=== PATIENT | female | born 1985 | race Caucasian/White ===

== ENCOUNTER 2018-01-24 11:08 | Emergency (ER) | payer MEDICAID, OTHER ==
[2018-01-24] MEDS ORDERED: Sodium Chloride 0.9% 1,000 ML IV ONE (11:12)
--- NOTE | 2018-01-24 11:15 | EDM.PDOC ---
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 Her boyfriend presents to emergency room shortly thereafter, l he states that she has history of anxiety and the syncopal episodes that are associated with usually stress reaction .she is going through a divorce. On arrival she was not talkative, she did complain of some chest pain or epigastric pain. 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 Otherwise , she is doing well and did provide some Ativan and proton X. she is asymptomatic, much improved entire workup is normal, she did not provide a urine sample. it seems that she deliberately did not urinate in the collection cup Provided , however she did urinate. no fever nausea vomiting chills sweats no chest pain shortness breath headache dizziness palpitation no bowel or urine symptoms ] Review of systems: As per history of present illness and below otherwise all systems reviewed and negative. Past medical history: As per history of present illness and as reviewed below otherwise noncontributory. Surgical history: As per history of present illness and as reviewed below otherwise noncontributory. Social history: No reported history of drug or alcohol abuse. Family history: As per history of present illness and as reviewed below otherwise noncontributory. Physical exam: HEENT: Atraumatic, normocephalic, pupils reactive, negative for conjunctival pallor or scleral icterus, mucous membranes moist, throat clear, neck supple, nontender, trachea midline. Lungs: Clear to auscultation, breath sounds equal bilaterally, chest nontender. Heart: S1S2, regular, negative for clicks, rubs, or JVD. Abdomen: Soft, nondistended, nontender. Negative for masses or hepatosplenomegaly. Negative for costovertebral tenderness. Pelvis: Stable nontender. Genitourinary: Deferred. Rectal: Deferred. Extremities: Atraumatic, negative for cords or calf pain. Neurovascular unremarkable. Neuro: Awake, alert, oriented. Cranial nerves II through XII unremarkable. Cerebellum unremarkable. Motor and sensory unremarkable throughout. Exam nonfocal. Diagnostics: [Accu-Chek glucose 88 CBC CMP UA troponin lipase hCG serum Chest [address] no contrast cervical spine no contrast Therapeutics: [1 L normal saline bolus ]Ativan 1 mg IV Proton X 80 mg IV 24 hours off work Ativan 0.5 mg by mouth twice a day #10 no refill Follow-up withPrimary care Impression: Anxiety /stress reaction Definitive disposition and diagnosis as appropriate pending reevaluation and review of above. - Related Data Allergies Allergy/AdvReac Type Severity Reaction Status Date / Time No Known Allergies Allergy Verified 01/24/18 13:01 Home Meds: Home Meds . [No Known Home Meds] 09/28/16 [History] Social & Family History - Family History Family Medical History: Noncontributory ED ROS GENERAL - Review of Systems Review Of Systems: See Below ED EXAM, GENERAL - Physical Exam Exam: See Below Course - Vital Signs Last Recorded V/S: Last Vital Signs Temp 97.6 F 01/24/18 11:10 Pulse 84 01/24/18 14:20 Resp 20 01/24/18 14:20 BP 98/62 01/24/18 14:20 Pulse Ox 99 01/24/18 14:20 Orthostatic Blood Pressure [ 133/91 Standing] Orthostatic Blood Pressure [ 133/87 Sitting] Orthostatic Blood Pressure [ 129/76 Supine] - Orders/Labs/Meds Labs: Laboratory Tests 01/24/18 01/24/18 01/24/18 Range/Units 11:34 11:34 11:34 WBC 6.13 (4.0-11.0) K/uL RBC 4.73 (4.30-5.90) M/uL Hgb 14.5 (12.0-16.0) g/dL Hct 43.7 (36.0-46.0) % MCV 92.4 (80.0-98.0) fL MCH 30.7 (27.0-32.0) pg MCHC 33.2 (31.0-37.0) g/dL RDW Std Deviation 45.2 (28.0-62.0) fl RDW Coeff of Ruth 13 (11.0-15.0) % Plt Count 163 (150-400) K/uL MPV 11.80 (7.40-12.00) fL Neut % (Auto) 64.0 (48.0-80.0) % Lymph % (Auto) 24.6 (16.0-40.0) % [place] % (Auto) 9.3 (0.0-15.0) % Eos % (Auto) 1.6 (0.0-7.0) % Baso % (Auto) 0.5 (0.0-1.5) % Neut # (Auto) 3.9 (1.4-5.7) K/uL Lymph # (Auto) 1.5 (0.6-2.4) K/uL [place] # (Auto) 0.6 (0.0-0.8) K/uL Eos # (Auto) 0.1 (0.0-0.7) K/uL Baso # (Auto) 0.0 (0.0-0.1) K/uL Nucleated RBC % 0.0 /100WBC Nucleated RBCs # 0 K/uL Sodium 140 (136-145) mmol/L Potassium 4.0 (3.5-5.1) mmol/L Chloride 105 (98-107) mmol/L Carbon Dioxide 25.6 (21.0-32.0) mmol/L BUN 18 (7.0-18.0) mg/dL Creatinine 0.8 (0.6-1.0) mg/dL Est Cr Clr Drug Dosing 87.55 mL/min Estimated GFR (MDRD) > 60.0 ml/min Glucose 103 (74-106) mg/dL Calcium 9.4 (8.5-10.1) mg/dL Total Bilirubin 0.4 (0.2-1.0) mg/dL AST 16 (15-37) IU/L ALT 31 (14-63) IU/L Alkaline Phosphatase 62 (46-116) U/L Troponin I < 0.050 (0.000-0.056) ng/mL Total Protein 7.4 (6.4-8.2) g/dL Albumin 4.2 (3.4-5.0) g/dL Globulin 3.2 (2.0-3.5) g/dL Albumin/Globulin Ratio 1.3 (1.3-2.8) Lipase 239 (73-393) U/L HCG, Qual NEGATIVE (NEG) Urine Color Urine Appearance Urine pH (5.0-8.0) Ur Specific [place] (1.001-1.035) Urine Protein (NEGATIVE) mg/dL Urine Glucose (UA) (NEGATIVE) mg/dL Urine Ketones (NEGATIVE) mg/dL Urine Occult Blood (NEGATIVE) Urine Nitrite (NEGATIVE) Urine Bilirubin (NEGATIVE) Urine Urobilinogen (<2.0) EU/dL Ur Leukocyte Esterase (NEGATIVE) Urine RBC (0-2/HPF) Urine WBC (0-5/HPF) Ur Epithelial Cells (NONE-FEW) Urine Bacteria (NEGATIVE) Urine HCG, Qual (NEGATIVE) 01/24/18 01/24/18 Range/Units 13:48 13:48 WBC (4.0-11.0) K/uL RBC (4.30-5.90) M/uL Hgb (12.0-16.0) g/dL Hct (36.0-46.0) % MCV (80.0-98.0) fL MCH (27.0-32.0) pg MCHC (31.0-37.0) g/dL RDW Std Deviation (28.0-62.0) fl RDW Coeff of Ruth (11.0-15.0) % Plt Count (150-400) K/uL MPV (7.40-12.00) fL Neut % (Auto) (48.0-80.0) % Lymph % (Auto) (16.0-40.0) % [place] % (Auto) (0.0-15.0) % Eos % (Auto) (0.0-7.0) % Baso % (Auto) (0.0-1.5) % Neut # (Auto) (1.4-5.7) K/uL Lymph # (Auto) (0.6-2.4) K/uL [place] # (Auto) (0.0-0.8) K/uL Eos # (Auto) (0.0-0.7) K/uL Baso # (Auto) (0.0-0.1) K/uL Nucleated RBC % /100WBC Nucleated RBCs # K/uL Sodium (136-145) mmol/L Potassium (3.5-5.1) mmol/L Chloride (98-107) mmol/L Carbon Dioxide (21.0-32.0) mmol/L BUN (7.0-18.0) mg/dL Creatinine (0.6-1.0) mg/dL Est Cr Clr Drug Dosing mL/min Estimated GFR (MDRD) ml/min Glucose (74-106) mg/dL Calcium (8.5-10.1) mg/dL Total Bilirubin (0.2-1.0) mg/dL AST (15-37) IU/L ALT (14-63) IU/L Alkaline Phosphatase (46-116) U/L Troponin I (0.000-0.056) ng/mL Total Protein (6.4-8.2) g/dL Albumin (3.4-5.0) g/dL Globulin (2.0-3.5) g/dL Albumin/Globulin Ratio (1.3-2.8) Lipase (73-393) U/L HCG, Qual (NEG) Urine Color YELLOW Urine Appearance CLEAR Urine pH 6.0 (5.0-8.0) Ur Specific [place] <= 1.005 (1.001-1.035) Urine Protein NEGATIVE (NEGATIVE) mg/dL Urine Glucose (UA) NEGATIVE (NEGATIVE) mg/dL Urine Ketones NEGATIVE (NEGATIVE) mg/dL Urine Occult Blood NEGATIVE (NEGATIVE) Urine Nitrite NEGATIVE (NEGATIVE) Urine Bilirubin NEGATIVE (NEGATIVE) Urine Urobilinogen 0.2 (<2.0) EU/dL Ur Leukocyte Esterase NEGATIVE (NEGATIVE) Urine RBC 0-1 (0-2/HPF) Urine WBC 0-1 (0-5/HPF) Ur Epithelial Cells RARE (NONE-FEW) Urine Bacteria RARE (NEGATIVE) Urine HCG, Qual NEGATIVE (NEGATIVE) Meds: Medications Discontinued Medications Generic Name Dose Route Start Last Admin Trade Name Freq PRN Reason Stop Dose Admin Sodium Chloride 1,000 mls @ 999 mls/hr 01/24/18 11:12 01/24/18 12:26 Normal Saline IV 01/24/18 12:12 999 mls/hr STAT ONE Administration Lorazepam 1 mg 01/24/18 11:35 01/24/18 12:26 Ativan IVPUSH 01/24/18 11:36 1 mg ONETIME ONE Administration Pantoprazole Sodium 80 mg 01/24/18 11:35 01/24/18 12:26 Protonix Iv IVPUSH 01/24/18 11:36 80 mg .BOLUS ONE Administration Departure - Departure Time of Disposition: 13:15 Disposition: Home, Self-Care 01 Condition: Good Clinical Impression: Stress reaction, Anxiety - Discharge Information Instructions: Generalized Anxiety Disorder, Adult, Stress Forms: ED Department Discharge Additional Instructions: Medication as prescribed Return if symptoms persist or worsen Follow-up with primary care in 2 weeks sooner as needed [facility] - Primary Care [address] [place] [id number] The following information is given to patients seen in the emergency department who are being discharged to home. This information is to outline your options for follow-up care. We provide all patients seen in our emergency department with a follow-up referral. The need for follow-up, as well as the timing and circumstances, are variable depending upon the specifics of your emergency department visit. If you don't have a primary care physician on staff, we will provide you with a referral. We always advise you to contact your personal physician following an emergency department visit to inform them of the circumstance of the visit and for follow-up with them and/or the need for any referrals to a consulting specialist. The emergency department will also refer you to a specialist when appropriate. This referral assures that you have the opportunity for follow-up care with a specialist. All of these measure are taken in an effort to provide you with optimal care, which includes your follow-up. Under all circumstances we always encourage you to contact your private physician who remains a resource for coordinating your care. When calling for follow-up care, please make the office aware that this follow-up is from your recent emergency room visit. If for any reason you are refused follow-up, please contact the [facility] emergency department at and asked to speak to the emergency department charge nurse.
[2018-01-24] MEDS ORDERED: Pantoprazole 40 MG Vial IVPUSH ONE (11:35)
[2018-01-24] MEDS ORDERED: LORazepam 2 MG/ML SDV IVPUSH ONE (11:35)
--- NOTE | 2018-01-24 12:01 | CR ---
EXAMINATION: Portable chest radiograph. HISTORY: Syncope. FINDINGS: The trachea is midline. The cardiomediastinal silhouette is within normal limits. No pulmonary infilt rates, effusions or pneumothorax. Osseous structures appear unremarkable. IMPRESSION: No acute cardiopulmonary process.
--- NOTE | 2018-01-24 12:20 | CT ---
EXAMINATION: CT cervical spine HISTORY: Pain COMPARISON: None TECHNIQUE: Axial CT images obtained through the cervical spine without contrast. Coronal and sagittal reconstructions obtained. FINDINGS: The cervical spinal alignment is normal. The vertebral body heights and disc spaces appear well-maintained. There is no fracture or acute osseous abnormality. Bone mineralization is normal. Ea rly degenerative changes within the left temporomandibular joint. Lung apices are clear. Paravertebra l soft tissues appear normal. IMPRESSION: No acute findings noted within the cervical spine.
[2018-01-24 12:26] LABS: CHLORIDE,CL 105 mmol/L (98-107); SODIUM,NA 140 mmol/L (136-145)
--- NOTE | 2018-01-24 12:48 | CT ---
EXAMINATION: Non contrast CT head. Coronal and sagittal reformats. HISTORY: Pain FINDINGS: No evidence of intra or extra axial hemorrhage, mass, midline shift, hydrocephalus or edema. No hypoattenuation changes in the major vascular territories to suggest acute infarct. No abnormal intracranial calcifications are detected. No evidence of substantial vascular calcificat ions. Small mucous retention cysts noted within the paranasal sinuses. Mastoid air cells and middle ears ar e clear. Orbits and globes are symmetric. Pituitary fossa appears unremarkable. Calvarium is intact. No evidence of skull fracture. IMPRESSION: No acute intracranial findings.
[2018-01-24 14:28] VITALS: BP 98/62
== END 2018-01-24 14:26 | disposition home or self-care (01) ==
LOC: MW.ED 11:08
DX: F43.9 Reaction to severe stress, unspecified (principal); F41.9 Anxiety disorder, unspecified
CPT/HCPCS: 36415; 70450; 71045; 72125; 80053; 81001; 81025; 83690; 84484; 84703; 85025; 93005; 96361; 96374; 96375; 99285; C9113; J2060; J7040

== ENCOUNTER 2019-03-02 16:38 | Emergency (ER) | payer MEDICAID ==
[2019-03-02] MEDS ORDERED: LORazepam 2 MG/ML SDV IVPUSH ONE (16:51)
--- NOTE | 2019-03-02 16:51 | EDM.PDOC ---
ED HPI GENERAL MEDICAL PROBLEM - General Chief Complaint: Chest Pain Stated Complaint: PANIC ATTACK Time Seen by Provider: 03/02/19 16:51 Source of Information: Reports: Patient - History of Present Illness INITIAL COMMENTS - FREE TEXT/NARRATIVE: HISTORY AND PHYSICAL: History of present illness: [Patient presents via EMS with complaint of chest pain post panic attack She has 4 out of 10 right-sided chest pain that is reproducible along right sternal border with palpation no fever nausea vomiting chills sweats no shortness of breath or diaphoresis no radiation arm neck or jaw ] Review of systems: As per history of present illness and below otherwise all systems reviewed and negative. Past medical history: As per history of present illness and as reviewed below otherwise noncontributory. Surgical history: As per history of present illness and as reviewed below otherwise noncontributory. Social history: No reported history of drug or alcohol abuse. Family history: As per history of present illness and as reviewed below otherwise noncontributory. Physical exam: HEENT: Atraumatic, normocephalic, pupils reactive, negative for conjunctival pallor or scleral icterus, mucous membranes moist, throat clear, neck supple, nontender, trachea midline. Lungs: Clear to auscultation, breath sounds equal bilaterally, chest nontender. Heart: S1S2, regular, negative for clicks, rubs, or JVD. Abdomen: Soft, nondistended, nontender. Negative for masses or hepatosplenomegaly. Negative for costovertebral tenderness. Pelvis: Stable nontender. Genitourinary: Deferred. Rectal: Deferred. Extremities: Atraumatic, negative for cords or calf pain. Neurovascular unremarkable. Neuro: Awake, alert, oriented. Cranial nerves II through XII unremarkable. Cerebellum unremarkable. Motor and sensory unremarkable throughout. Exam nonfocal. Diagnostics: [CBC CMP troponin lipase UA hCG EKG Chest 1 view] Therapeutics: [She received aspirin with EMS Ativan 1 mg IV Proton X ] Impression: [ anxiety about health Reproducible chest wall pain Panic disorder ] Definitive disposition and diagnosis as appropriate pending reevaluation and review of above. Chest Pain Score (Numeric/FACES): 4 - Related Data Allergies Allergy/AdvReac Type Severity Reaction Status Date / Time No Known Allergies Allergy Verified 03/02/19 16:41 Home Meds: Home Meds Sertraline [Zoloft] 100 mg PO DAILY 03/02/19 [History] Past Medical History Cardiovascular History: Reports: Other (See Below) Other Cardiovascular History: cardiac hx unknown Psychiatric History: Reports: Anxiety - Infectious Disease History Infectious Disease History: Reports: None Social & Family History - Family History Family Medical History: Noncontributory - Tobacco Use Smoking Status *Q: Never Smoker Second Hand Smoke Exposure: No - Caffeine Use Caffeine Use: Reports: Coffee - Recreational Drug Use Recreational Drug Use: No ED ROS GENERAL - Review of Systems Review Of Systems: See Below ED EXAM, GENERAL - Physical Exam Exam: See Below Course - Vital Signs Last Recorded V/S: Last Vital Signs Temp 98.5 F 03/02/19 16:41 Pulse 93 03/02/19 16:41 Resp 16 03/02/19 16:41 BP 109/71 03/02/19 16:41 Pulse Ox 97 03/02/19 16:41 - Orders/Labs/Meds Orders: Active Orders 24 hr Category Date Time Status EKG Documentation Completion [RC] STAT Care 03/02/19 16:52 Active Chest 1V Frontal [CR] Stat Exams 03/02/19 16:52 Ordered Ondansetron [Zofran ODT] Med 03/02/19 17:30 Active 8 mg PO ONETIME PRN Medication Orders Ondansetron HCl (Zofran Odt) 8 mg PO ONETIME PRN PRN Reason: Nausea/Vomiting Last Admin: 03/02/19 17:38 Dose: 8 mg Labs: Laboratory Tests 03/02/19 03/02/19 03/02/19 Range/Units 17:16 17:16 17:55 WBC 6.99 (4.0-11.0) K/uL RBC 4.56 (4.30-5.90) M/uL Hgb 13.7 (12.0-16.0) g/dL Hct 41.7 (36.0-46.0) % MCV 91.4 (80.0-98.0) fL MCH 30.0 (27.0-32.0) pg MCHC 32.9 (31.0-37.0) g/dL RDW Std Deviation 42.7 (28.0-62.0) fl RDW Coeff of Ruth 13 (11.0-15.0) % Plt Count 140 L (150-400) K/uL MPV 11.40 (7.40-12.00) fL Neut % (Auto) 79.4 (48.0-80.0) % Lymph % (Auto) 12.3 L (16.0-40.0) % [place] % (Auto) 7.4 (0.0-15.0) % Eos % (Auto) 0.6 (0.0-7.0) % Baso % (Auto) 0.3 (0.0-1.5) % Neut # (Auto) 5.6 (1.4-5.7) K/uL Lymph # (Auto) 0.9 (0.6-2.4) K/uL [place] # (Auto) 0.5 (0.0-0.8) K/uL Eos # (Auto) 0.0 (0.0-0.7) K/uL Baso # (Auto) 0.0 (0.0-0.1) K/uL Nucleated RBC % 0.0 /100WBC Nucleated RBCs # 0 K/uL Sodium 140 (136-145) mmol/L Potassium 3.4 L (3.5-5.1) mmol/L Chloride 107 (98-107) mmol/L Carbon Dioxide 24.5 (21.0-32.0) mmol/L BUN 16 (7.0-18.0) mg/dL Creatinine 0.8 (0.6-1.0) mg/dL Est Cr Clr Drug Dosing 86.37 mL/min Estimated GFR (MDRD) > 60.0 ml/min Glucose 124 H (74-106) mg/dL Calcium 8.8 (8.5-10.1) mg/dL Total Bilirubin 0.4 (0.2-1.0) mg/dL AST 11 L (15-37) IU/L ALT 16 (14-63) IU/L Alkaline Phosphatase 50 (46-116) U/L Troponin I < 0.050 (0.000-0.056) ng/mL Total Protein 7.0 (6.4-8.2) g/dL Albumin 4.0 (3.4-5.0) g/dL Globulin 3.0 (2.6-4.0) g/dL Albumin/Globulin Ratio 1.3 (0.9-1.6) Lipase 207 (73-393) U/L Urine Color YELLOW Urine Appearance SLT CLOUDY Urine pH 6.5 (5.0-8.0) Ur Specific [place] 1.020 (1.001-1.035) Urine Protein NEGATIVE (NEGATIVE) mg/dL Urine Glucose (UA) NEGATIVE (NEGATIVE) mg/dL Urine Ketones TRACE H (NEGATIVE) mg/dL Urine Occult Blood NEGATIVE (NEGATIVE) Urine Nitrite NEGATIVE (NEGATIVE) Urine Bilirubin SMALL H (NEGATIVE) Urine Ictotest NEGATIVE Urine Urobilinogen 1.0 (<2.0) EU/dL Ur Leukocyte Esterase NEGATIVE (NEGATIVE) Urine HCG, Qual (NEGATIVE) 03/02/19 Range/Units 17:55 WBC (4.0-11.0) K/uL RBC (4.30-5.90) M/uL Hgb (12.0-16.0) g/dL Hct (36.0-46.0) % MCV (80.0-98.0) fL MCH (27.0-32.0) pg MCHC (31.0-37.0) g/dL RDW Std Deviation (28.0-62.0) fl RDW Coeff of Ruth (11.0-15.0) % Plt Count (150-400) K/uL MPV (7.40-12.00) fL Neut % (Auto) (48.0-80.0) % Lymph % (Auto) (16.0-40.0) % [place] % (Auto) (0.0-15.0) % Eos % (Auto) (0.0-7.0) % Baso % (Auto) (0.0-1.5) % Neut # (Auto) (1.4-5.7) K/uL Lymph # (Auto) (0.6-2.4) K/uL [place] # (Auto) (0.0-0.8) K/uL Eos # (Auto) (0.0-0.7) K/uL Baso # (Auto) (0.0-0.1) K/uL Nucleated RBC % /100WBC Nucleated RBCs # K/uL Sodium (136-145) mmol/L Potassium (3.5-5.1) mmol/L Chloride (98-107) mmol/L Carbon Dioxide (21.0-32.0) mmol/L BUN (7.0-18.0) mg/dL Creatinine (0.6-1.0) mg/dL Est Cr Clr Drug Dosing mL/min Estimated GFR (MDRD) ml/min Glucose (74-106) mg/dL Calcium (8.5-10.1) mg/dL Total Bilirubin (0.2-1.0) mg/dL AST (15-37) IU/L ALT (14-63) IU/L Alkaline Phosphatase (46-116) U/L Troponin I (0.000-0.056) ng/mL Total Protein (6.4-8.2) g/dL Albumin (3.4-5.0) g/dL Globulin (2.6-4.0) g/dL Albumin/Globulin Ratio (0.9-1.6) Lipase (73-393) U/L Urine Color Urine Appearance Urine pH (5.0-8.0) Ur Specific [place] (1.001-1.035) Urine Protein (NEGATIVE) mg/dL Urine Glucose (UA) (NEGATIVE) mg/dL Urine Ketones (NEGATIVE) mg/dL Urine Occult Blood (NEGATIVE) Urine Nitrite (NEGATIVE) Urine Bilirubin (NEGATIVE) Urine Ictotest Urine Urobilinogen (<2.0) EU/dL Ur Leukocyte Esterase (NEGATIVE) Urine HCG, Qual NEGATIVE (NEGATIVE) Meds: Medications Generic Name Dose Route Start Last Admin Trade Name Freq PRN Reason Stop Dose Admin Ondansetron HCl 8 mg 03/02/19 17:30 03/02/19 17:38 Zofran Odt PO 8 mg ONETIME PRN Administration Nausea/Vomiting Discontinued Medications Generic Name Dose Route Start Last Admin Trade Name Freq PRN Reason Stop Dose Admin Lorazepam 0.5 mg 03/02/19 16:51 03/02/19 17:15 Ativan IVPUSH 03/02/19 16:52 Not Given ONETIME ONE Lorazepam 0.5 mg 03/02/19 17:04 03/02/19 17:15 Ativan PO 03/02/19 17:05 0.5 mg ONETIME ONE Administration Departure - Departure Time of Disposition: 18:35 Disposition: Home, Self-Care 01 Condition: Good Clinical Impression: Panic disorder, Anxiety about health, Chest wall pain - Discharge Information Referrals: PCP,Unknown [Primary Care Provider] - Forms: ED Department Discharge Additional Instructions: Continue current medication as directed Return if symptoms persist or worsen Follow-up with primary care in 2 weeks sooner as needed [facility] - Primary Care [address] [place] [id number] The following information is given to patients seen in the emergency department who are being discharged to home. This information is to outline your options for follow-up care. We provide all patients seen in our emergency department with a follow-up referral. The need for follow-up, as well as the timing and circumstances, are variable depending upon the specifics of your emergency department visit. If you don't have a primary care physician on staff, we will provide you with a referral. We always advise you to contact your personal physician following an emergency department visit to inform them of the circumstance of the visit and for follow-up with them and/or the need for any referrals to a consulting specialist. The emergency department will also refer you to a specialist when appropriate. This referral assures that you have the opportunity for follow-up care with a specialist. All of these measure are taken in an effort to provide you with optimal care, which includes your follow-up. Under all circumstances we always encourage you to contact your private physician who remains a resource for coordinating your care. When calling for follow-up care, please make the office aware that this follow-up is from your recent emergency room visit. If for any reason you are refused follow-up, please contact the [facility] emergency department at and asked to speak to the emergency department charge nurse. - My Orders Last 24 Hours: My Active Orders 03/02/19 16:52 EKG Documentation Completion [RC] STAT Chest 1V Frontal [CR] Stat 03/02/19 17:30 Ondansetron [Zofran ODT] 8 mg PO ONETIME PRN - Assessment/Plan Last 24 Hours: My Active Orders 03/02/19 16:52 EKG Documentation Completion [RC] STAT Chest 1V Frontal [CR] Stat 03/02/19 17:30 Ondansetron [Zofran ODT] 8 mg PO ONETIME PRN
[2019-03-02 16:55] VITALS: BP 109/71
[2019-03-02] MEDS ORDERED: LORazepam 0.5 MG Tab PO ONE (17:04)
[2019-03-02] MEDS ORDERED: Ondansetron 4 MG Tab.DIS PO PRN (17:30)
[2019-03-02 17:49] LABS: CHLORIDE,CL 107 mmol/L (98-107); SODIUM,NA 140 mmol/L (136-145)
--- NOTE | 2019-03-02 18:58 | CR ---
INDICATION: Chest pain. COMPARISON: 01/24/2018. FINDINGS: A PA view of the chest was obtained. The cardiac silhouette and pulmonary vasculature are within normal limits. The lungs are clear bilaterally. IMPRESSION: No evidence of acute pulmonary disease. Dictated by Familia Mackey MD @ 03/02/2019 6:57:57 PM Dictated by: Familia Mackey MD @ 03/02/2019 18:58:05 (Electronically Signed)
== END 2019-03-02 19:12 | disposition home or self-care (01) ==
LOC: MW.ED 16:38
DX: R07.89 Other chest pain (principal); F41.0 Panic disorder [episodic paroxysmal anxiety]; Z79.899 Other long term (current) drug therapy
CPT/HCPCS: 36415; 71045; 80053; 81003; 81025; 83690; 84484; 85025; 93005; 99285; A9270

== ENCOUNTER 2019-04-13 21:21 | Emergency (ER) | payer MEDICAID ==
[2019-04-13] MEDS ORDERED: LORazepam 2 MG/ML SDV IVPUSH ONE (21:27)
--- NOTE | 2019-04-13 22:03 | EDM.PDOC ---
<Carter Aly - Last Filed: 04/13/19 23:41> ED HPI GENERAL MEDICAL PROBLEM - General Chief Complaint: General Stated Complaint: ANXIETY Time Seen by Provider: 04/13/19 21:31 - History of Present Illness INITIAL COMMENTS - FREE TEXT/NARRATIVE: HISTORY AND PHYSICAL: History of present illness: Sherrell is a 34 year old female with a history previous anxiety attacks presents to the emergency department accompanied by her boyfriend for the evaluation of right chest pain. The patient expressed she developed symptoms of chest tightness and shortness of breath approximately two hours ago. She informed me she has experienced similar symptoms for as long as she can remember. The patient reports her chest pain is originates at her right chest and extends distally to her ribs. In the past, when she would experience similar symptoms she would take her PRN Ativan which was effective for symptom relief. The patient states she is of Ativan at home and does not have a current prescription. She expressed she does not have an established PCP. She denies any recent episodes of fevers or chills, leg swelling, cough or sputum production. Review of systems: As per history of present illness and below otherwise all systems reviewed and negative. Past medical history: As per history of present illness and as reviewed below otherwise noncontributory. Surgical history: As per history of present illness and as reviewed below otherwise noncontributory. Social history: No reported history of drug or alcohol abuse. Family history: As per history of present illness and as reviewed below otherwise noncontributory. Physical exam: Constitutional: Well developed well nourished, non toxic appearing. HEENT: Atraumatic, normocephalic, pupils reactive, mucous membranes moist, throat clear, neck supple, nontender, trachea midline. Lungs: Clear to auscultation, breath sounds equal bilaterally, chest nontender. Heart: S1S2, regular, tenderness to palpation of the right costochondral joints Abdomen: Soft, nondistended, nontender. Negative for masses or hepatosplenomegaly. Negative for costovertebral tenderness. Pelvis: Stable nontender. Genitourinary: Deferred. Rectal: Deferred. Extremities: Atraumatic, negative for cords or calf pain. Neurovascular unremarkable. Neuro: Awake, alert, oriented. Cranial nerves II through XII unremarkable. Cerebellum unremarkable. Motor and sensory unremarkable throughout. Exam nonfocal. Diagnostics: UCG, UA, Trop, EKG, CMP, CXR Therapeutics: 1 mg Ativan Impression: Panic attack Attack Plan: All diagnostic results negative. Chest pain is resolved and she is resting comfortably. She states the chest wall pain is very similar to when she had previous episodes of panic attacks. She will be released home. She is is to establish care with a PCP. Returned to the ED as needed and as discussed. The patient is in agreement to the treatment plan. Definitive disposition and diagnosis as appropriate pending reevaluation and review of above. Treatments STONE LAYOUT MARKER: Reports: EKG, IV/IO, Oxygen chest Pain Score (Numeric/FACES): 5 - Related Data Allergies Allergy/AdvReac Type Severity Reaction Status Date / Time No Known Allergies Allergy Verified 04/13/19 21:39 Home Meds: Home Meds Sertraline [Zoloft] 0 mg PO DAILY 03/02/19 [History] Past Medical History Cardiovascular History: Reports: Other (See Below) Other Cardiovascular History: cardiac hx unknown Psychiatric History: Reports: Anxiety - Infectious Disease History Infectious Disease History: Reports: None Social & Family History - Family History Family Medical History: Noncontributory - Caffeine Use Caffeine Use: Reports: Coffee Course - Vital Signs Last Recorded V/S: Last Vital Signs Temp 36.4 C 04/13/19 21:21 Pulse 98 04/13/19 21:21 Resp 24 H 04/13/19 21:21 BP 137/88 04/13/19 21:21 Pulse Ox 96 04/13/19 21:21 - Orders/Labs/Meds Orders: Active Orders 24 hr Category Date Time Status EKG Documentation Completion [RC] STAT Care 04/13/19 21:32 Active Labs: Laboratory Tests 04/13/19 04/13/19 04/13/19 Range/Units 21:53 21:53 22:05 WBC 7.26 (4.0-11.0) K/uL RBC 4.54 (4.30-5.90) M/uL Hgb 13.7 (12.0-16.0) g/dL Hct 41.6 (36.0-46.0) % MCV 91.6 (80.0-98.0) fL MCH 30.2 (27.0-32.0) pg MCHC 32.9 (31.0-37.0) g/dL RDW Std Deviation 43.8 (28.0-62.0) fl RDW Coeff of Ruth 13 (11.0-15.0) % Plt Count 159 (150-400) K/uL MPV 11.90 (7.40-12.00) fL Neut % (Auto) 53.7 (48.0-80.0) % Lymph % (Auto) 29.8 (16.0-40.0) % Gulf % (Auto) 13.2 (0.0-15.0) % Eos % (Auto) 2.3 (0.0-7.0) % Baso % (Auto) 1.0 (0.0-1.5) % Neut # (Auto) 3.9 (1.4-5.7) K/uL Lymph # (Auto) 2.2 (0.6-2.4) K/uL [place] # (Auto) 1.0 H (0.0-0.8) K/uL Eos # (Auto) 0.2 (0.0-0.7) K/uL Baso # (Auto) 0.1 (0.0-0.1) K/uL Nucleated RBC % 0.0 /100WBC Nucleated RBCs # 0 K/uL Sodium 140 (136-145) mmol/L Potassium 3.8 (3.5-5.1) mmol/L Chloride 107 (98-107) mmol/L Carbon Dioxide 24.4 (21.0-32.0) mmol/L BUN 13 (7.0-18.0) mg/dL Creatinine 0.7 (0.6-1.0) mg/dL Est Cr Clr Drug Dosing 111.16 mL/min Estimated GFR (MDRD) > 60.0 ml/min Glucose 91 (74-106) mg/dL Calcium 9.2 (8.5-10.1) mg/dL Total Bilirubin 0.4 (0.2-1.0) mg/dL AST 7 L (15-37) IU/L ALT 18 (14-63) IU/L Alkaline Phosphatase 60 (46-116) U/L Troponin I < 0.050 (0.000-0.056) ng/mL Total Protein 7.1 (6.4-8.2) g/dL Albumin 3.9 (3.4-5.0) g/dL Globulin 3.2 (2.6-4.0) g/dL Albumin/Globulin Ratio 1.2 (0.9-1.6) Urine Color YELLOW Urine Appearance CLEAR Urine pH 8.0 (5.0-8.0) Ur Specific [place] 1.010 (1.001-1.035) Urine Protein NEGATIVE (NEGATIVE) mg/dL Urine Glucose (UA) NEGATIVE (NEGATIVE) mg/dL Urine Ketones NEGATIVE (NEGATIVE) mg/dL Urine Occult Blood NEGATIVE (NEGATIVE) Urine Nitrite NEGATIVE (NEGATIVE) Urine Bilirubin NEGATIVE (NEGATIVE) Urine Urobilinogen 0.2 (<2.0) EU/dL Ur Leukocyte Esterase NEGATIVE (NEGATIVE) Urine HCG, Qual (NEGATIVE) 04/13/19 Range/Units 22:05 WBC (4.0-11.0) K/uL RBC (4.30-5.90) M/uL Hgb (12.0-16.0) g/dL Hct (36.0-46.0) % MCV (80.0-98.0) fL MCH (27.0-32.0) pg MCHC (31.0-37.0) g/dL RDW Std Deviation (28.0-62.0) fl RDW Coeff of Ruth (11.0-15.0) % Plt Count (150-400) K/uL MPV (7.40-12.00) fL Neut % (Auto) (48.0-80.0) % Lymph % (Auto) (16.0-40.0) % Gulf % (Auto) (0.0-15.0) % Eos % (Auto) (0.0-7.0) % Baso % (Auto) (0.0-1.5) % Neut # (Auto) (1.4-5.7) K/uL Lymph # (Auto) (0.6-2.4) K/uL [place] # (Auto) (0.0-0.8) K/uL Eos # (Auto) (0.0-0.7) K/uL Baso # (Auto) (0.0-0.1) K/uL Nucleated RBC % /100WBC Nucleated RBCs # K/uL Sodium (136-145) mmol/L Potassium (3.5-5.1) mmol/L Chloride (98-107) mmol/L Carbon Dioxide (21.0-32.0) mmol/L BUN (7.0-18.0) mg/dL Creatinine (0.6-1.0) mg/dL Est Cr Clr Drug Dosing mL/min Estimated GFR (MDRD) ml/min Glucose (74-106) mg/dL Calcium (8.5-10.1) mg/dL Total Bilirubin (0.2-1.0) mg/dL AST (15-37) IU/L ALT (14-63) IU/L Alkaline Phosphatase (46-116) U/L Troponin I (0.000-0.056) ng/mL Total Protein (6.4-8.2) g/dL Albumin (3.4-5.0) g/dL Globulin (2.6-4.0) g/dL Albumin/Globulin Ratio (0.9-1.6) Urine Color Urine Appearance Urine pH (5.0-8.0) Ur Specific [place] (1.001-1.035) Urine Protein (NEGATIVE) mg/dL Urine Glucose (UA) (NEGATIVE) mg/dL Urine Ketones (NEGATIVE) mg/dL Urine Occult Blood (NEGATIVE) Urine Nitrite (NEGATIVE) Urine Bilirubin (NEGATIVE) Urine Urobilinogen (<2.0) EU/dL Ur Leukocyte Esterase (NEGATIVE) Urine HCG, Qual NEGATIVE (NEGATIVE) Meds: Medications Discontinued Medications Generic Name Dose Route Start Last Admin Trade Name Freq PRN Reason Stop Dose Admin Lorazepam 1 mg 04/13/19 21:27 04/13/19 21:36 Ativan IVPUSH 04/13/19 21:28 1 mg ONETIME ONE Administration Departure - Departure Disposition: Home, Self-Care 01 Clinical Impression: History of panic attacks Chest pain Qualifiers: Chest pain type: unspecified Qualified Code(s): R07.9 - Chest pain, unspecified - Discharge Information Instructions: Panic Attack, [id number], Nonspecific Chest Pain, [id number] Referrals: PCP,None [Primary Care Provider] - Forms: ED Department Discharge Additional Instructions: The following information is given to patients seen in the emergency department who are being discharged to home. This information is to outline your options for follow-up care. We provide all patients seen in our emergency department with a follow-up referral. The need for follow-up, as well as the timing and circumstances, are variable depending upon the specifics of your emergency department visit. If you don't have a primary care physician on staff, we will provide you with a referral. We always advise you to contact your personal physician following an emergency department visit to inform them of the circumstance of the visit and for follow-up with them and/or the need for any referrals to a consulting specialist. The emergency department will also refer you to a specialist when appropriate. This referral assures that you have the opportunity for follow-up care with a specialist. All of these measure are taken in an effort to provide you with optimal care, which includes your follow-up. Under all circumstances we always encourage you to contact your private physician who remains a resource for coordinating your care. When calling for follow-up care, please make the office aware that this follow-up is from your recent emergency room visit. If for any reason you are refused follow-up, please contact the [facility] Emergency Department at and asked to speak to the emergency department charge nurse. [facility] [address] [place] [id number] [place] [address] 1. You can alternate ibuprofen and Tylenol as directed for pain and discomfort. 2. Follow-up with her primary care provider as discussed. Return to the ED as needed and as discussed. - My Orders Last 24 Hours: My Active Orders 04/13/19 21:32 EKG Documentation Completion [RC] STAT - Assessment/Plan Last 24 Hours: My Active Orders 04/13/19 21:32 EKG Documentation Completion [RC] STAT <Parul Carrasco - Last Filed: 04/13/19 23:50> ED HPI GENERAL MEDICAL PROBLEM - General Source of Information: Reports: Patient History Limitations: Reports: No Limitations - History of Present Illness INITIAL COMMENTS - FREE TEXT/NARRATIVE: I have physically seen the patient and agree with the above note as I am the overseeing provider for this patient. Notes: Patient did not express on initial history of present illness but does discussed that she sees Tere Vernon for frequent panic attacks. She does state that her symptoms today resembled her typical panic attacks. Patient states she ran out of Ativan which is what brought her to the ED. Patient does express complete resolution of her chest pain after therapeutics today. Discussed the importance for follow-up with a primary care provider. Voices understanding and is agreeable to plan of care. Denies any further questions or concerns at this time. Diagnostics: Add to above--CBC Prescription: None Impression: Panic attack, resolved Chest pain, unspecified History of panic attacks Plan: 1. You can alternate ibuprofen and Tylenol as directed for pain and discomfort. 2. Follow-up with her primary care provider as discussed. Return to the ED as needed and as discussed. Definitive disposition and diagnosis as appropriate pending reevaluation and review of above. ED ROS GENERAL - Review of Systems Review Of Systems: ROS reveals no pertinent complaints other than HPI. ED EXAM, GENERAL - Physical Exam Exam: See Below (See dictation) Departure - Departure Time of Disposition: 23:39
[2019-04-13 22:23] LABS: BLOOD UREA NITROGEN,BUN 13 mg/dL (7.0-18.0); CARBON DIOXIDE,CO2 24.4 mmol/L (21.0-32.0); CHLORIDE,CL 107 mmol/L (98-107); GLUCOSE RANDOM 91 mg/dL (74-106); POTASSIUM,K 3.8 mmol/L (3.5-5.1); SODIUM,NA 140 mmol/L (136-145)
--- NOTE | 2019-04-13 22:52 | CR ---
INDICATION: chest pain, anxiety TECHNIQUE: Chest 1 view. COMPARISON: 03/02/19 FINDINGS: Cardiovascular and mediastinum: Heart size and vasculature are normal in caliber and appearance. Mediastinum is within normal limits. Lungs and pleural space: Lungs are clear. No sign of infiltrate or mass. No sign of pleural effusion. No pneumothorax. Bones and soft tissues: No significant findings. IMPRESSION: Unremarkable chest. Dictated by: Terence Whittington MD @ 04/13/2019 22:50:35 (Electronically Signed)
[2019-04-14 02:08] VITALS: BP 103/64; PULSE 67
== END 2019-04-13 23:50 | disposition home or self-care (01) ==
LOC: MW.ED 21:21
DX: F41.0 Panic disorder [episodic paroxysmal anxiety] (principal); Z79.899 Other long term (current) drug therapy
CPT/HCPCS: 36415; 71045; 80053; 81003; 81025; 84484; 85025; 93005; 96374; 99285; J2060; 99283

== ENCOUNTER 2019-08-17 18:04 | Emergency (ER) | payer MEDICAID ==
[2019-08-17] MEDS ORDERED: Ketorolac 60 MG/2 ML SDV IM ONE (18:52)
--- NOTE | 2019-08-17 18:52 | EDM.PDOC ---
ED HPI GENERAL MEDICAL PROBLEM - General Chief Complaint: Neck Problem Stated Complaint: NECK PAIN Time Seen by Provider: 08/17/19 18:48 Source of Information: Reports: Patient History Limitations: Reports: No Limitations - History of Present Illness INITIAL COMMENTS - FREE TEXT/NARRATIVE: HISTORY AND PHYSICAL: History of present illness: Patient is a 34 year old female who presents to the ED with c/o neck pain. She states she woke up and started her day per usual. She states she moved wrong and felt a sudden sharp pain to her left neck. Has muscular stiffness with movement. Denies any injury, trauma or falls. Patient denies any fever, chills, headache, change in vision, syncope or near syncope. Denies any chest pain, back pain, shortness of breath or cough. Denies any GI or symptoms. Denies any numbness or tingling to fingertips. Denies any weakness. Patient has been eating and drinking appropriately. Review of systems: As per history of present illness and below otherwise all systems reviewed and negative. Past medical history: As per history of present illness and as reviewed below otherwise noncontributory. Surgical history: As per history of present illness and as reviewed below otherwise noncontributory. Social history: See social history for further information Family history: As per history of present illness and as reviewed below otherwise noncontributory. Physical exam: General: Well developed and well nourished 34 year old female. Alert and orientated. nontoxic appearing and in no acute distress. HEENT: Atraumatic, normocephalic, pupils equal and reactive bilaterally, negative for conjunctival pallor or scleral icterus, mucous membranes moist, TMs normal bilaterally, throat clear, neck supple, nontender, trachea midline. No drooling or trismus noted. No meningeal signs. No hot potato voice noted. Lungs: Clear to auscultation, breath sounds equal bilaterally, chest nontender. Heart: S1S2, regular rate and rhythm without overt murmur Abdomen: Soft, nondistended, nontender. Negative for masses or hepatosplenomegaly. Negative for costovertebral tenderness. Pelvis: Stable nontender. C-spine/Back: No pinpoint vertebral tenderness upon palpation. No crepitus, step -offs or obvious deformities. Muscular tenderness to cervical spine bilaterally. Patient is ambulatory into the emergency room without difficulty or deficit. Able to rock back on heels and walk on toes. Denies any urinary or fecal incontinence. Denies any numbness, tingling or saddle paresthesia. Skin: Intact, warm, dry. No lesions or rashes noted. Extremities: Atraumatic, moves all extremities per self without difficulty or deficits, negative for cords or calf pain. Neurovascular unremarkable. Neuro: Awake, alert, oriented. Cranial nerves II through XII unremarkable. Cerebellum unremarkable. Motor and sensory unremarkable throughout. Exam nonfocal. Notes: X-ray shows no acute findings. Supportive care measures were reviewed and discussed. Voices understanding and is agreeable to plan of care. Denies any further questions or concerns at this time. Diagnostics: UA, HCGU, C-spine x-ray Therapeutics: Norflex, Toradol Prescription: Diclofenac, Flexeril Impression: Acute strain of neck muscle Plan: 1. The medication you received today does cause drowsiness, so do not drive for the remaining day 2. When resting please lay on a flat firm surface. Limit your immobility to prevent muscle stiffness. Get up to ambulate/move around/gentle stretching multiple times throughout the day. May alternate heat and ice to the painful areas 3. Tylenol as needed for back pain. Otherwise take the prescribed Flexeril and diclofenac as directed. Diclofenac is an anti-inflammatory so do not take any additional NSAIDs with this medication, such as ibuprofen or Aleve. Flexeril as a muscle relaxant, this medication may cause drowsiness a do not take it will driving her needing to be functioning outside of the house. 4. Please follow-up with your primary care provider as we discussed. Return to the ED as needed and as discussed. Definitive disposition and diagnosis as appropriate pending reevaluation and review of above. left neck Pain Score (Numeric/FACES): 6 - Related Data Allergies Allergy/AdvReac Type Severity Reaction Status Date / Time No Known Allergies Allergy Verified 08/17/19 18:23 Home Meds: Home Meds Sertraline [Zoloft] 0 mg PO DAILY 03/02/19 [History] Cyclobenzaprine [Flexeril] 10 mg PO TID PRN #21 tab 08/17/19 [Rx] Diclofenac Sodium [Voltaren] 75 mg PO BIDMEALS PRN #30 tab.cr 08/17/19 [Rx] Past Medical History Cardiovascular History: Reports: Afib Other Cardiovascular History: cardiac hx unknown Psychiatric History: Reports: Anxiety - Infectious Disease History Infectious Disease History: Reports: Chicken Pox - Past Surgical History Other Cardiovascular Surgeries/Procedures: valve surgery when Social & Family History - Family History Family Medical History: Noncontributory - Tobacco Use Smoking Status *Q: Never Smoker - Caffeine Use Caffeine Use: Reports: Coffee - Recreational Drug Use Recreational Drug Use: No ED ROS GENERAL - Review of Systems Review Of Systems: Comprehensive ROS is negative, except as noted in HPI. ED EXAM, UPPER BACK/NECK PAIN - Physical Exam Exam: See Below (See dictation) Course - Vital Signs Last Recorded V/S: Last Vital Signs Temp 98.3 F 08/17/19 18:24 Pulse 79 08/17/19 18:24 Resp 18 08/17/19 18:24 BP 120/69 08/17/19 18:24 Pulse Ox 98 08/17/19 18:24 - Orders/Labs/Meds Orders: Active Orders 24 hr Category Date Time Status Cervical Spine 2V or 3V [CR] Stat Exams 08/17/19 18:52 Taken Labs: Laboratory Tests 08/17/19 08/17/19 Range/Units 18:57 18:57 Urine Color YELLOW Urine Appearance CLEAR Urine pH 7.0 (5.0-8.0) Ur Specific [place] 1.020 (1.001-1.035) Urine Protein NEGATIVE (NEGATIVE) mg/dL Urine Glucose (UA) NEGATIVE (NEGATIVE) mg/dL Urine Ketones NEGATIVE (NEGATIVE) mg/dL Urine Occult Blood NEGATIVE (NEGATIVE) Urine Nitrite NEGATIVE (NEGATIVE) Urine Bilirubin NEGATIVE (NEGATIVE) Urine Urobilinogen 0.2 (<2.0) EU/dL Ur Leukocyte Esterase NEGATIVE (NEGATIVE) Urine HCG, Qual NEGATIVE (NEGATIVE) Meds: Medications Discontinued Medications Generic Name Dose Route Start Last Admin Trade Name Freq PRN Reason Stop Dose Admin Ketorolac Tromethamine 60 mg 08/17/19 18:52 08/17/19 19:35 Toradol IM 08/17/19 18:53 60 mg ONETIME ONE Administration Orphenadrine Citrate 60 mg 08/17/19 18:52 08/17/19 19:35 Norflex IM 08/17/19 18:53 60 mg ONETIME ONE Administration Departure - Departure Time of Disposition: 20:50 Disposition: Home, Self-Care 01 Clinical Impression: Acute strain of neck muscle Qualifiers: Encounter type: initial encounter Qualified Code(s): S16.1XXA - Strain of muscle, fascia and tendon at neck level, initial encounter - Discharge Information Prescriptions: Cyclobenzaprine [Flexeril] 10 mg PO TID PRN #21 tab PRN Reason: Muscle Spasm Diclofenac Sodium [Voltaren] 75 mg PO BIDMEALS PRN #30 tab.cr PRN Reason: Pain Referrals: Sharifa Vernon NP [Primary Care Provider] - Forms: ED Department Discharge Additional Instructions: The following information is given to patients seen in the emergency department who are being discharged to home. This information is to outline your options for follow-up care. We provide all patients seen in our emergency department with a follow-up referral. The need for follow-up, as well as the timing and circumstances, are variable depending upon the specifics of your emergency department visit. If you don't have a primary care physician on staff, we will provide you with a referral. We always advise you to contact your personal physician following an emergency department visit to inform them of the circumstance of the visit and for follow-up with them and/or the need for any referrals to a consulting specialist. The emergency department will also refer you to a specialist when appropriate. This referral assures that you have the opportunity for follow-up care with a specialist. All of these measure are taken in an effort to provide you with optimal care, which includes your follow-up. Under all circumstances we always encourage you to contact your private physician who remains a resource for coordinating your care. When calling for follow-up care, please make the office aware that this follow-up is from your recent emergency room visit. If for any reason you are refused follow-up, please contact the [facility] Emergency Department at and asked to speak to the emergency department charge nurse. [facility] [address] [place] [id number] [facility] [address] [place] [id number] 1. The medication you received today does cause drowsiness, so do not drive for the remaining day 2. When resting please lay on a flat firm surface. Limit your immobility to prevent muscle stiffness. Get up to ambulate/move around/gentle stretching multiple times throughout the day. May alternate heat and ice to the painful areas 3. Tylenol as needed for back pain. Otherwise take the prescribed Flexeril and diclofenac as directed. Diclofenac is an anti-inflammatory so do not take any additional NSAIDs with this medication, such as ibuprofen or Aleve. Flexeril as a muscle relaxant, this medication may cause drowsiness a do not take it will driving her needing to be functioning outside of the house. 4. Please follow-up with your primary care provider as we discussed. Return to the ED as needed and as discussed. Sepsis Event Note - Evaluation Sepsis Screening Result: No Definite Risk - Focused Exam Vital Signs: Vital Signs Temp Pulse Resp BP Pulse Ox 08/17/19 18:24 98.3 F 79 18 120/69 98 Date Exam was Performed: 08/17/19 Time Exam was Performed: 20:50 - My Orders Last 24 Hours: My Active Orders 08/17/19 18:52 Cervical Spine 2V or 3V [CR] Stat - Assessment/Plan Last 24 Hours: My Active Orders 08/17/19 18:52 Cervical Spine 2V or 3V [CR] Stat
--- NOTE | 2019-08-17 20:51 | CR ---
INDICATION: Pain TECHNIQUE: Cervical spine 4 view. COMPARISON: None FINDINGS: Bones: Alignment is normal. No fractures or significant bone lesions. Joints: Disc spaces and facet joints are unremarkable. Soft tissues: Unremarkable. IMPRESSION: Unremarkable cervical spine. No specific finding to explain pain. Dictated by Enrico Davis MD @ Aug 17 2019 8:47PM Signed by Dr. Enrico Davis @ Aug 17 2019 8:49PM
[2019-08-17 21:13] VITALS: BP 106/68; PULSE 67
== END 2019-08-17 21:14 | disposition home or self-care (01) ==
LOC: MW.ED 18:04
DX: S16.1XXA Strain of muscle, fascia and tendon at neck level, initial encounter (principal); Z79.899 Other long term (current) drug therapy; X50.9XXA Other and unspecified overexertion or strenuous movements or postures, initial encounter; Y93.89 Activity, other specified
CPT/HCPCS: 72040; 81003; 81025; 96372; 99283; J1885; J2360

== ENCOUNTER 2019-11-15 17:15 | Emergency (ER) | payer MEDICAID ==
[2019-11-15] MEDS ORDERED: LORazepam 2 MG/ML SDV IVPUSH ONE (17:44)
[2019-11-15] MEDS ORDERED: Ketorolac 30 MG/ML SDV IVPUSH ONE (17:44)
[2019-11-15] MEDS ORDERED: Ondansetron 4 MG/2 ML SDV IVPUSH ONE (17:44)
[2019-11-15] MEDS ORDERED: Sodium Chloride 0.9% 1,000 ML IV ONE (17:44)
--- NOTE | 2019-11-15 17:50 | EDM.PDOC ---
ED HPI GENERAL MEDICAL PROBLEM - General Chief Complaint: Headache Stated Complaint: HEADACHE Time Seen by Provider: 11/15/19 17:36 Source of Information: Reports: Patient History Limitations: Reports: No Limitations - History of Present Illness INITIAL COMMENTS - FREE TEXT/NARRATIVE: HISTORY AND PHYSICAL: History of present illness: Patient is a 34-year-old female who presents to the emergency room with complaints of headache. She states over the past 2 days she has had a frontal headache which she describes as a tight band that wraps around her scalp and sharp in the frontal aspect. She does have light sensitivity, noise sensitivity and nausea/vomiting. States she typically does not get migraine headaches and this is unusual for her. Patient denies any fever, chills, headache, change in vision, syncope or near syncope. Denies any chest pain, back pain, shortness of breath or cough. Denies any abdominal pain, nausea, vomiting, diarrhea, constipation or dysuria. Has not noted any blood in urine or stool. Patient has been eating and drinking appropriately. Review of systems: As per history of present illness and below otherwise all systems reviewed and negative. Past medical history: As per history of present illness and as reviewed below otherwise noncontributory. Surgical history: As per history of present illness and as reviewed below otherwise noncontributory. Social history: See social history for further information Family history: As per history of present illness and as reviewed below otherwise noncontributory. Physical exam: General: HEENT: Atraumatic, normocephalic, pupils equal and reactive bilaterally, negative for conjunctival pallor or scleral icterus, mucous membranes moist, TMs normal bilaterally, throat clear, neck supple, nontender, trachea midline. No drooling or trismus noted. No meningeal signs. No hot potato voice noted. Lungs: Clear to auscultation, breath sounds equal bilaterally, chest nontender. Heart: S1S2, regular rate and rhythm without overt murmur Abdomen: Soft, nondistended, nontender. Negative for masses or hepatosplenomegaly. Negative for costovertebral tenderness. Pelvis: Stable nontender. Genitourinary: Deferred. Rectal: Deferred. Skin: Intact, warm, dry. No lesions or rashes noted. Extremities: Atraumatic, moves all extremities per self without difficulty or deficits, negative for cords or calf pain. Neurovascular unremarkable. Neuro: Awake, alert, oriented. Cranial nerves II through XII unremarkable. Cerebellum unremarkable. Motor and sensory unremarkable throughout. Exam nonfocal. Notes: Supportive care measures were reviewed and discussed. Voices understanding and is agreeable to plan of care. Denies any further questions or concerns at this time. Diagnostics: CBC, BMP, HCGU, Head CT Therapeutics: IV fluids, Zofran, Toradol, Ativan Prescription: None Impression: Frontal headache Plan: 1. Please take the remainder of the day to rest in a dark quiet room. The medication you received may cause drowsiness so no driving. 2. Lab work is unremarkable. Head CT shows no acute findings although they do note a small retention sinus cyst which usually are asymptomatic but can occasionally cause some headaches. If you continue to have headaches and would like you to follow-up with neurology for further evaluation and management. 3. You may alternate Tylenol and ibuprofen for pain management. 4. Return to the ED as needed and as discussed. Definitive disposition and diagnosis as appropriate pending reevaluation and review of above. headache Pain Score (Numeric/FACES): 6 - Related Data Allergies Allergy/AdvReac Type Severity Reaction Status Date / Time No Known Allergies Allergy Verified 11/15/19 17:42 Home Meds: Home Meds . [Unable to Verify Home Med List] 11/15/19 [History] Anti-Anxiety 11/15/19 [History] Past Medical History Cardiovascular History: Reports: Afib, Heart Murmur Other Cardiovascular History: cardiac hx unknown Genitourinary History: Reports: None [employer] History: Reports: Psychiatric History: Reports: Anxiety - Infectious Disease History Infectious Disease History: Reports: Chicken Pox - Past Surgical History Cardiovascular Surgical History: Reports: Other (See Below) Other Cardiovascular Surgeries/Procedures: valve surgery when Female Surgical History: Reports: D&C Social & Family History - Family History Family Medical History: Noncontributory - Tobacco Use Smoking Status *Q: Never Smoker Second Hand Smoke Exposure: No - Caffeine Use Caffeine Use: Reports: Coffee - Recreational Drug Use Recreational Drug Use: No ED ROS GENERAL - Review of Systems Review Of Systems: Comprehensive ROS is negative, except as noted in HPI. - Physical Exam Exam: See Below (See dictation) Course - Vital Signs Last Recorded V/S: Last Vital Signs Temp 97.5 F 11/15/19 19:32 Pulse 88 11/15/19 19:32 Resp 18 11/15/19 19:32 BP 106/70 11/15/19 19:32 Pulse Ox 98 11/15/19 19:32 - Orders/Labs/Meds Labs: Laboratory Tests 11/15/19 11/15/19 Range/Units 18:00 18:10 WBC 9.27 (4.0-11.0) K/uL RBC 4.89 (4.30-5.90) M/uL Hgb 15.0 (12.0-16.0) g/dL Hct 46.1 H (36.0-46.0) % MCV 94.3 (80.0-98.0) fL MCH 30.7 (27.0-32.0) pg MCHC 32.5 (31.0-37.0) g/dL RDW Std Deviation 44.9 (28.0-62.0) fl RDW Coeff of Ruth 13 (11.0-15.0) % Plt Count 159 (150-400) K/uL MPV 11.60 (7.40-12.00) fL Neut % (Auto) 62.0 (48.0-80.0) % Lymph % (Auto) 24.8 (16.0-40.0) % [place] % (Auto) 10.4 (0.0-15.0) % Eos % (Auto) 2.0 (0.0-7.0) % Baso % (Auto) 0.8 (0.0-1.5) % Neut # (Auto) 5.8 H (1.4-5.7) K/uL Lymph # (Auto) 2.3 (0.6-2.4) K/uL [place] # (Auto) 1.0 H (0.0-0.8) K/uL Eos # (Auto) 0.2 (0.0-0.7) K/uL Baso # (Auto) 0.1 (0.0-0.1) K/uL Nucleated RBC % 0.0 /100WBC Nucleated RBCs # 0 K/uL Sodium 142 (136-145) mmol/L Potassium 4.7 (3.5-5.1) mmol/L Chloride 105 (98-107) mmol/L Carbon Dioxide 29.3 (21.0-32.0) mmol/L BUN 13 (7.0-18.0) mg/dL Creatinine 0.8 (0.6-1.0) mg/dL Est Cr Clr Drug Dosing 93.63 mL/min Estimated GFR (MDRD) > 60.0 ml/min Glucose 88 (74-106) mg/dL Calcium 9.5 (8.5-10.1) mg/dL Meds: Medications Discontinued Medications Generic Name Dose Route Start Last Admin Trade Name Eunice PRN Reason Stop Dose Admin Sodium Chloride 1,000 mls @ 999 mls/hr 11/15/19 17:44 11/15/19 18:10 Normal Saline IV 11/15/19 18:44 999 mls/hr STAT ONE Administration Ketorolac Tromethamine 30 mg 11/15/19 17:44 11/15/19 18:11 Toradol IVPUSH 11/15/19 17:45 30 mg ONETIME ONE Administration Lorazepam 1 mg 11/15/19 17:44 11/15/19 18:11 Ativan IVPUSH 11/15/19 17:45 1 mg ONETIME ONE Administration Ondansetron HCl 4 mg 11/15/19 17:44 11/15/19 18:11 Zofran IVPUSH 11/15/19 17:45 4 mg ONETIME ONE Administration Departure - Departure Time of Disposition: 19:41 Disposition: Home, Self-Care 01 Clinical Impression: Frontal headache - Discharge Information Instructions: Migraine Headache, [id number] Referrals: Sharifa Vernon NP [Primary Care Provider] - Forms: ED Department Discharge Additional Instructions: The following information is given to patients seen in the emergency department who are being discharged to home. This information is to outline your options for follow-up care. We provide all patients seen in our emergency department with a follow-up referral. The need for follow-up, as well as the timing and circumstances, are variable depending upon the specifics of your emergency department visit. If you don't have a primary care physician on staff, we will provide you with a referral. We always advise you to contact your personal physician following an emergency department visit to inform them of the circumstance of the visit and for follow-up with them and/or the need for any referrals to a consulting specialist. The emergency department will also refer you to a specialist when appropriate. This referral assures that you have the opportunity for follow-up care with a specialist. All of these measure are taken in an effort to provide you with optimal care, which includes your follow-up. Under all circumstances we always encourage you to contact your private physician who remains a resource for coordinating your care. When calling for follow-up care, please make the office aware that this follow-up is from your recent emergency room visit. If for any reason you are refused follow-up, please contact the [facility] Emergency Department at and asked to speak to the emergency department charge nurse. [facility] [address] [place] [id number] [facility] [address] [place] [id number] 1. Please take the remainder of the day to rest in a dark quiet room. The medication you received may cause drowsiness so no driving. 2. Lab work is unremarkable. Head CT shows no acute findings although they do note a small retention sinus cyst which usually are asymptomatic but can occasionally cause some headaches. If you continue to have headaches and would like you to follow-up with neurology for further evaluation and management. 3. You may alternate Tylenol and ibuprofen for pain management. 4. Return to the ED as needed and as discussed. Sepsis Event Note - Evaluation Sepsis Screening Result: No Definite Risk - Focused Exam Vital Signs: Vital Signs Temp Pulse Resp BP Pulse Ox 11/15/19 19:32 97.5 F 88 18 106/70 98 11/15/19 17:33 96.8 F L 78 18 129/68 98 Date Exam was Performed: 11/15/19 Time Exam was Performed: 19:39
[2019-11-15 18:41] LABS: BLOOD UREA NITROGEN,BUN 13 mg/dL (7.0-18.0); CARBON DIOXIDE,CO2 29.3 mmol/L (21.0-32.0); CHLORIDE,CL 105 mmol/L (98-107); GLUCOSE RANDOM 88 mg/dL (74-106); POTASSIUM,K 4.7 mmol/L (3.5-5.1); SODIUM,NA 142 mmol/L (136-145)
--- NOTE | 2019-11-15 19:17 | CT ---
Head CT Technique: Multiple axial sections through the brain were obtained. Intravenous contrast was not utilized. Comparison: Prior head CT study of 01/24/18. Findings: Ventricles along with basal cisterns and sulci over the convexities are within normal limits for the patient's age. No abnormal parenchymal densities are seen. No evidence of intracranial hemorrhage. No midline shift or mass-effect is seen. Bone window settings were reviewed which shows a retention cyst within the right maxillary sinus measuring 1.8 cm. This has slightly increased in size from prior head CT exam. Other visualized paranasal sinuses are clear. No acute mastoid sinus findings are seen. No acute calvarial abnormality is seen. Impression: 1. Slightly enlarging retention cyst within the right maxillary sinus. 2. No acute intracranial abnormality is identified. Diagnostic code #2 This report was dictated in MDT
[2019-11-15 19:32] VITALS: BP 106/70; PULSE 88
== END 2019-11-15 19:55 | disposition home or self-care (01) ==
LOC: MW.ED 17:15
DX: R51 Headache (principal); I48.91 Unspecified atrial fibrillation; F41.9 Anxiety disorder, unspecified; Z79.899 Other long term (current) drug therapy
CPT/HCPCS: 36415; 70450; 80048; 85025; 96361; 96374; 96375; 99284; J1885; J2060; J2405; J7030

== ENCOUNTER 2021-06-22 08:03 | Emergency (ER) | payer BC ==
--- NOTE | 2021-06-22 08:14 | EDM.PDOC ---
ED HPI GENERAL MEDICAL PROBLEM - General Chief Complaint: Respiratory Problem Stated Complaint: CHEST PAIN,SOB,COUGH Time Seen by Provider: 06/22/21 08:13 Source of Information: Reports: Patient History Limitations: Reports: No Limitations - History of Present Illness INITIAL COMMENTS - FREE TEXT/NARRATIVE: 36-year-old female past medical history anxiety, depression presents for Covid- like symptoms. Patient notes that for the last 5 or 6 days she has had worsening body aches, headache, nonproductive cough, chest pain, shortness of breath, sinus congestion, subjective fevers. He is not vaccinated against COVID-19. She denies significant shortness of breath and states her primary reason for coming to the hospital is her chest pain which is worse with coughing. head Pain Score (Numeric/FACES): 7 - Related Data Allergies Allergy/AdvReac Type Severity Reaction Status Date / Time No Known Allergies Allergy Verified 06/22/21 08:16 Home Meds: Home Meds RX: Meloxicam [Mobic] 7.5 mg PO Q4H PRN 06/22/21 [History] RX: buPROPion [buPROPion XL] 150 mg PO DAILY 06/22/21 [History] Past Medical History Cardiovascular History: Reports: Afib, Heart Murmur Other Cardiovascular History: cardiac hx unknown Genitourinary History: Reports: None [employer] History: Reports: Psychiatric History: Reports: Anxiety - Infectious Disease History Infectious Disease History: Reports: Chicken Pox - Past Surgical History Cardiovascular Surgical History: Reports: Other (See Below) Other Cardiovascular Surgeries/Procedures: valve surgery when infant Female Surgical History: Reports: D&C Social & Family History - Family History Family Medical History: No Pertinent Family History - Caffeine Use Caffeine Use: Reports: Coffee ED ROS GENERAL - Review of Systems Review Of Systems: Comprehensive ROS is negative, except as noted in HPI. ED EXAM, GENERAL - Physical Exam Exam: See Below Exam Limited By: No Limitations General Appearance: Alert, WD/WN, No Apparent Distress Ears: Hearing Grossly Normal Throat/Mouth: Normal Voice, No Airway Compromise Head: Atraumatic, Normocephalic Respiratory/Chest: No Respiratory Distress, Lungs Clear, Normal Breath Sounds, No Accessory Muscle Use Cardiovascular: Normal Peripheral Pulses, Regular Rate, Rhythm Extremities: Normal Inspection Neurological: Alert, Normal Cognition, Normal Gait Psychiatric: Normal Affect, Normal Mood Skin Exam: Warm, Dry, Intact, Normal Color Course - Vital Signs Last Recorded V/S: Last Vital Signs Temp 96.9 F 06/22/21 08:18 Pulse 87 06/22/21 08:18 Resp 18 06/22/21 08:18 BP 113/77 06/22/21 08:18 Pulse Ox 97 06/22/21 08:18 - Orders/Labs/Meds Labs: Laboratory Tests 06/22/21 Range/Units 08:27 SARS-CoV-2 RNA (STUART) POSITIVE H (NEGATIVE) Meds: Medications Discontinued Medications Generic Name Dose Route Start Last Admin Trade Name Eunice PRN Reason Stop Dose Admin Hydrocodone Bitart/Acetaminophen 1 tab 06/22/21 08:33 06/22/21 09:05 Acetaminophen/Hydrocodone 325-5 Mg Tab PO 06/22/21 08:34 1 tab ONETIME ONE Administration Ibuprofen 600 mg 06/22/21 08:36 06/22/21 09:04 Ibuprofen 600 Mg Tab PO 06/22/21 08:37 600 mg ONETIME ONE Administration - Re-Assessments/Exams Free Text/Narrative Re-Assessment/Exam: 06/22/21 08:34 We will get COVID-19 test. Will get chest x-ray to assess for Covid pneumonia. Very low suspicion ACS, will defer EKG and blood labs. Will give hydrocodone/Tylenol for cough suppressant analgesia. 06/22/21 09:57 Patient's COVID-19 test is positive. Her chest x-ray does not show any evidence of Covid pneumonia. She is feeling much better for the hydrocodone/Tylenol for cough suppressant/analgesia. Will discharge with short course of hydrocodone/Tylenol. Return precautions were discussed at length including worsening shortness of breath, worsening chest pain, dizziness or passing out when ambulating. Departure - Departure Time of Disposition: 09:57 Disposition: Home, Self-Care 01 Condition: Good Clinical Impression: COVID-19 - Discharge Information Instructions: COVID-19: What to Do If You Are Sick- [facility] (11/20/2020) Referrals: Jie LUNA [Primary Care Provider] - Forms: ED Department Discharge Additional Instructions: Your Covid test was positive. Your chest x-ray does not show any evidence of Covid pneumonia. I did prescribe as short course of cough suppression/pain medicine to your pharmacy, [facility]. If you experience worsening shortness of breath, worsening chest pain, dizziness or feeling like you are going to pass out when you are walking short distances please come back to the hospital. The following information is given to patients seen in the emergency department who are being discharged to home. This information is to outline your options for follow-up care. We provide all patients seen in our emergency department with a follow-up referral. The need for follow-up, as well as the timing and circumstances, are variable depending upon the specifics of your emergency department visit. If you don't have a primary care physician on staff, we will provide you with a referral. We always advise you to contact your personal physician following an emergency department visit to inform them of the circumstance of the visit and for follow-up with them and/or the need for any referrals to a consulting specialist. The emergency department will also refer you to a specialist when appropriate. This referral assures that you have the opportunity for follow-up care with a specialist. All of these measure are taken in an effort to provide you with optimal care, which includes your follow-up. Under all circumstances we always encourage you to contact your private physician who remains a resource for coordinating your care. When calling for follow-up care, please make the office aware that this follow-up is from your recent emergency room visit. If for any reason you are refused follow-up, please contact the [facility] Emergency Department at and asked to speak to the emergency department charge nurse. Please follow up with your primary care physician. If you do not have a primary care physician, see below: [facility] [address] [place] [id number] [facility] [address] [place], [place] [id number] [facility] [address], [place] [address] Sepsis Event Note (ED) - Focused Exam Vital Signs: Vital Signs Temp Pulse Resp BP Pulse Ox 06/22/21 08:18 96.9 F 87 18 113/77 97
[2021-06-22] MEDS ORDERED: Acetaminophen/HYDROcodone 325-5 MG Tab PO ONE (08:33)
[2021-06-22] MEDS ORDERED: Ibuprofen 600 MG Tab PO ONE (08:36)
--- NOTE | 2021-06-22 09:46 | CR ---
INDICATION: COVID-19 positive. COMPARISON: Chest radiograph April 13, 2019. TECHNIQUE: Portable AP chest. FINDINGS: Normal size cardiac silhouette. Clear lung kurtz with no evidence of acute pneumonic infiltrates or CHF. No pneumothorax or pleural effusion. IMPRESSION: Negative portable AP chest. Dictated by Wil Elizabeth MD @ 06/22/2021 9:45:25 AM (Electronically Signed)
[2021-06-22 10:11] VITALS: BP 116/77; PULSE 75
== END 2021-06-22 10:11 | disposition home or self-care (01) ==
LOC: MW.ED 08:03
DX: U07.1 COVID-19 (principal); I48.91 Unspecified atrial fibrillation
CPT/HCPCS: 71045; 87635; 99285; A9270; U0002

== ENCOUNTER 2022-08-10 20:01 | Emergency (ER) | payer BC ==
[2022-08-10] MEDS ORDERED: Sodium Chloride 0.9% 2.5 ML Syringe FLUSH PRN (20:58)
[2022-08-10] MEDS ORDERED: Sodium Chloride 0.9% 10 ML Syringe FLUSH PRN (20:58)
[2022-08-10] MEDS ORDERED: Sodium Chloride 0.9% 1,000 ML IV ONE (20:58)
[2022-08-10 23:34] LABS: CARBON DIOXIDE,CO2 28.4 mmol/L (21.0-32.0)
[2022-08-11] MEDS ORDERED: Ondansetron 4 MG/2 ML SDV IVPUSH ONE (00:28)
[2022-08-11 05:55] VITALS: BP 118/72; PULSE 79
== END 2022-08-11 01:45 | disposition home or self-care (01) ==
LOC: MW.ED 20:01
DX: K29.70 Gastritis, unspecified, without bleeding (principal); Z79.899 Other long term (current) drug therapy
CPT/HCPCS: 36415; 74176; 80053; 81001; 81025; 85025; 96361; 96374; 99284; J2405; J3490; J7030

== ENCOUNTER 2022-11-13 17:28 | Emergency (ER) | payer BC ==
[2022-11-13 18:11] VITALS: BP 123/76
[2022-11-13] MEDS ORDERED: Acetaminophen/HYDROcodone 325-5 MG Tab PO ONE (19:23)
[2022-11-13 21:06] VITALS: PULSE 70
== END 2022-11-13 21:05 | disposition home or self-care (01) ==
LOC: MW.ED 17:28
DX: M25.522 Pain in left elbow (principal); M53.3 Sacrococcygeal disorders, not elsewhere classified; W00.0XXA Fall on same level due to ice and snow, initial encounter; Y93.01 Activity, walking, marching and hiking
CPT/HCPCS: 73080; 73090; 73110; 99283; A9270

== ENCOUNTER 2023-06-21 19:32 | Emergency (ER) | payer BC, OTHER ==
[2023-06-21] MEDS ORDERED: LORazepam 2 MG/ML SDV IVPUSH ONE ×3 (19:36→20:37)
[2023-06-21] MEDS ORDERED: Sodium Chloride 0.9% 1,000 ML IV ONE ×2 (19:36→19:48)
[2023-06-21] MEDS ORDERED: LORazepam 2 MG/ML SDV ONE (19:37)
[2023-06-21 19:58] LABS: BASOPHILS ABSOLUTE AUTO 0.05 K/uL (0.00-0.20); BASOPHILS PERCENT AUTO 0.7 % (0.0-1.0); EOSINOPHILS ABSOLUTE AUTO 0.05 K/uL (0.00-0.45); EOSINOPHILS PERCENT AUTO 0.7 % (0.0-6.0); HEMATOCRIT 36.3 % (37.0-47.0); HEMOGLOBIN 12.5 g/dL (12.0-16.0); IMMATURE GRAN ABSOLUTE AUTO 0.01 K/uL (0.00-0.05); IMMATURE GRAN PERCENT AUTO 0.1 % (0.0-0.4); LYMPHOCYTES ABSOLUTE AUTO 1.97 K/uL (1.00-4.80); LYMPHOCYTES PERCENT AUTO 28.4 % (24.0-44.0); MEAN CORPUSCULAR HEMOGLOBIN 30.3 pg (28.0-32.0); MEAN CORPUSCULAR HGB CONC 34.4 g/dL (32.0-36.0); MEAN CORPUSCULAR VOLUME 88.1 fL (83.0-99.0); MEAN PLATELET VOLUME 10.9 fL (9.4-12.3); MONOCYTES ABSOLUTE AUTO 0.63 K/uL (0.00-0.80); MONOCYTES PERCENT AUTO 9.1 % (0.0-8.0); NEUTROPHILS ABSOLUTE AUTO 4.23 K/uL (1.80-7.70); PLATELET COUNT,PLT 173 K/uL (150-400); RED BLOOD CELL COUNT 4.12 M/uL (4.10-5.30); WHITE BLOOD CELL COUNT,WBC 6.94 K/uL (3.9-11.3)
[2023-06-21 20:21] LABS: INR 1.01 (0.86-1.11); PTT,PARTIAL THROMBOPLSTIN TIME 24.8 SEC (23.9-30.7)
[2023-06-21 20:28] LABS: APPEARANCE,URINE CLEAR; BILIRUBIN,URINE NEGATIVE (NEGATIVE); COLOR,URINE YELLOW; GLUCOSE,URINE NEGATIVE (NEGATIVE); KETONES,URINE NEGATIVE (NEGATIVE); LEUKOCYTE ESTERASE,URINE NEGATIVE (NEGATIVE); NITRITE,URINE NEGATIVE (NEGATIVE); OCCULT BLOOD,URINE NEGATIVE (NEGATIVE); PH,URINE 5.5 (5.0-8.0); PROTEIN,URINE NEGATIVE (NEGATIVE); UROBILINOGEN,URINE 0.2 EU/dL (<2.0)
[2023-06-21 20:34] LABS: ACETAMINOPHEN <2.0 ug/mL
[2023-06-21 20:38] LABS: AMPHETAMINES SCREEN, URINE NEGATIVE (CUTOFF=500); BARBITURATE SCREEN,URINE NEGATIVE (CUTOFF=200); BENZODIAZEPINES SCREEN,URINE PRESUMPTIVE POSITIVE (CUTOFF=150); BUPRENORPHINE SCREEN,URINE NEGATIVE (CUTOFF=10); METHADONE SCREEN, URINE NEGATIVE (CUTOFF=200); METHAMPHETAMINES SCREEN, URINE NEGATIVE (CUTOFF=500); OXYCODONE SCREEN,URINE NEGATIVE (CUT0FF=100); PCP SCREEN,URINE NEGATIVE (CUTOFF=25); PROPOXYPHENE SCREEN,URINE NEGATIVE (CUTOFF=300); THC SCREEN,URINE 20 NG/ML PRESUMPTIVE POSITIVE (CUTOFF=50)
[2023-06-21 20:39] LABS: LACTIC ACID 3.2 mmol/L (0.4-2.0)
[2023-06-21 20:44] LABS: A/G RATIO 1.2 (0.9-1.6); ALANINE AMINOTRANSFERASE,ALT 19 IU/L (14-63); ALBUMIN 3.7 g/dL (3.4-5.0); ALKALINE PHOSPHATASE 58 U/L (46-116); ASPARTATE AMNIOTRANSFERASE,AST 11 IU/L (15-37); BILIRUBIN TOTAL 0.3 mg/dL (0.2-1.0); BLOOD UREA NITROGEN,BUN 8 mg/dL (7.0-18.0); CALCIUM 8.6 mg/dL (8.5-10.1); CARBON DIOXIDE,CO2 24.1 mmol/L (21.0-32.0); CHLORIDE,CL 104 mmol/L (98-107); CREATININE 0.9 mg/dL (0.6-1.0); GLUCOSE RANDOM 83 mg/dL (74-106); MAGNESIUM 1.7 mg/dL (1.8-2.4); POTASSIUM,K 3.4 mmol/L (3.5-5.1); PROTEIN TOTAL,TP 6.8 g/dL (6.4-8.2); SODIUM,NA 137 mmol/L (136-145); TSH ULTRASENSITIVE 1.65 uIU/mL (0.36-3.74)
[2023-06-21 20:47] LABS: ESTIMATED GFR 84 mL/min (>60); ETHANOL BLOOD MEDICAL < 3.0 mg/dL
[2023-06-22 00:10] VITALS: BP 105/65; PULSE 83
== END 2023-06-22 00:40 ==
LOC: MW.ED 19:32
DX: R56.9 Unspecified convulsions (principal)
CPT/HCPCS: 36415; 70450; 80053; 80143; 80179; 80305; 80307; 81003; 83605; 83735; 84443; 84484; 84703; 85025; 85610; 85730; 87635; 93005; 96361; 96374; 96375; 96376; 99285; J1953; J2060; J7030; J7060; 93010; U0002

== ENCOUNTER 2024-09-12 06:35 | Emergency (ER) | payer OTHER ==
[2024-09-12] MEDS ORDERED: Sodium Chloride 0.9% 10 ML Syringe FLUSH PRN (06:47)
[2024-09-12] MEDS: Sodium Chloride 0.9% 1,000 ML IV ONE ×2 (08:00→09:08)
[2024-09-12] MEDS: Dexamethasone 4 MG/ML SDV IVPUSH ONE (08:02)
[2024-09-12] MEDS: Acetaminophen 500 MG Tab PO ONE (08:02)
[2024-09-12] MEDS: Prochlorperazine 10 MG/2 ML SDV IVPUSH ONE (08:02)
[2024-09-12] MEDS: diphenhydrAMINE 50 MG/ML SDV IVPUSH ONE (08:02)
[2024-09-12 08:14] LABS: BASOPHILS ABSOLUTE AUTO 0.06 K/uL (0.00-0.20); BASOPHILS PERCENT AUTO 0.7 % (0.0-1.0); EOSINOPHILS ABSOLUTE AUTO 0.13 K/uL (0.00-0.45); EOSINOPHILS PERCENT AUTO 1.5 % (0.0-6.0); HEMATOCRIT 42.3 % (37.0-47.0); HEMOGLOBIN 14.5 g/dL (12.0-16.0); IMMATURE GRAN ABSOLUTE AUTO 0.03 K/uL (0.00-0.05); IMMATURE GRAN PERCENT AUTO 0.3 % (0.0-0.4); LYMPHOCYTES ABSOLUTE AUTO 1.61 K/uL (1.00-4.80); LYMPHOCYTES PERCENT AUTO 18.5 % (24.0-44.0); MEAN CORPUSCULAR HEMOGLOBIN 29.8 pg (28.0-32.0); MEAN CORPUSCULAR HGB CONC 34.3 g/dL (32.0-36.0); MEAN CORPUSCULAR VOLUME 86.9 fL (83.0-99.0); MEAN PLATELET VOLUME 11.7 fL (9.4-12.3); MONOCYTES ABSOLUTE AUTO 0.87 K/uL (0.00-0.80); PLATELET COUNT,PLT 189 K/uL (150-400); RED BLOOD CELL COUNT 4.87 M/uL (4.10-5.30)
[2024-09-12 08:48] LABS: A/G RATIO 1.2 (0.9-1.6); ALBUMIN 4.2 g/dL (3.4-5.0); BILIRUBIN TOTAL 0.4 mg/dL (0.2-1.0); CALCIUM 9.4 mg/dL (8.5-10.1); CARBON DIOXIDE,CO2 23.5 mmol/L (21.0-32.0); CREATININE 1.1 mg/dL (0.6-1.0); EST CRCL DRUG DOSING (CG) 67.43 mL/min; MAGNESIUM 2.1 mg/dL (1.8-2.4); POTASSIUM,K 4.3 mmol/L (3.5-5.1); PROTEIN TOTAL,TP 7.8 g/dL (6.4-8.2)
[2024-09-12] MEDS: LORazepam 2 MG/ML SDV IVPUSH ONE (09:09)
[2024-09-12 09:37] VITALS: PULSE 77
[2024-09-12 10:25] VITALS: BP 110/78
== END 2024-09-12 10:24 | disposition home or self-care (01) ==
LOC: MW.ED 06:35
DX: G43.909 Migraine, unspecified, not intractable, without status migrainosus (principal)
CPT/HCPCS: 36415; 71045; 80053; 83690; 83735; 83880; 84703; 85025; 87428; 96361; 96374; 96375; 99284; A9270; J0780; J1100; J1200; J2060; J7030